=== PATIENT | female | born 1940 | race Caucasian/White ===

== ENCOUNTER 2017-08-26 16:13 | Emergency (ER) | payer OTHER, MEDICAID ==
[~2017-08-26] VITALS: Ht 149.9 cm; Wt 85.0 kg
[~2017-08-26 16:13] MED LIST: ADVAIR; ADVAIR 250-501 EACH INH; AFRIN120 MG PO; AFRIN15 ML NASAL; ALBUTEROL INHALER; APAP500 PO; ARTHRITIS MED; ASPIRIN325 PO; ATIVAN0.5 MG PO; CARDIZEM SR 60M60 MG; CARVEDILOL3.125 MG; CEFDINIR300 MG PO; COZAAR 25 MG TA25 M2 PO; COZAAR 50 MG TA50 M2 PO; COZAAR100 MG; CYCLOBENZAPRINE10 MG PO; CYMBALTA30 MG; DILTIAZEM HCL60 MG PO; FERROUS GLUCON324 M2 PO; FLOMAX0.4 MG PO; FLONASE; FLONASE16 GM NASAL; GEMFIBROZIL 60600 M1 PO; GEMFIBROZIL 60600 MG PO; GLUCOPHAGE1000 MG PO; HCTZ; HYDROCHLOROTHIA25 M1 PO; HYDROCHLOROTHIA25 M2 PO; HYDROCODON-ACE1 EAC7 PO; HYDROCODON-ACE1 EACH PO; LANTUS; LANTUS SUBQ; LEVAQUIN 250 M250 MG PO; LEVOTHYROXIN0.025 MG PO; LEVOTHYROXIN0.112 M1; LEVOTHYROXIN0.125 M1 PO; LEVOTHYROXINE; MIRALAX17 GM PO; NEURONTIN 300300 M1 PO; NEXIUM20 M1 PO; NEXIUM40 MG PO; NORCO 5-325 TA1 EACH PO; NORVASC10 MG PO; NOVOFINE; OMEPRAZOLE40 MG PO; OXYCODONE HCL 55 MG; OXYCONTIN CR 1010 M1; PERCOCET 5-3251 EACH PO; PHENERGAN 25 MG25 M1; PREDNISONE 10 M10 MG PO; RANITIDINE HCL300 M1 PO; REMERON15 M1; REQUIP 1 MG TABL1 M1 PO; SERTRALINE HCL100 MG PO; SERTRALINE HCL50 MG; SINGULAIR 10 MG10 M1 PO; SINGULAIR 10 MG10 MG PO; SPIRIVA INH; SPIRONOLACTONE25 MG PO; TIZANIDINE HCL 22 M1 PO; TOPAMAX 25 MG T25 MG PO; TRAMADOL 50 MG50 MG PO; TRAZODONE HCL50 MG PO; VENTOLIN HFA 1818 GM INH; ZOFRAN 4 MG ORAL4 MG PO; ZOFRAN ODT4 MG SUBLING; ZOFRAN4 MG PO; ZOFRAN8 MG PO
[2017-08-26 16:45] LABS: ABSOLUTE BASOPHILS 0.1 thou/uL (0.0-0.2); ABSOLUTE EOSINOPHILS 0.4 thou/uL (0.0-0.7); ABSOLUTE LYMPHOCYTES 1.5 thou/uL (0.8-5.3); ABSOLUTE NEUTROPHILS 11.3 thou/uL (1.6-8.1); BASOPHILS 0.4 %; EOSINOPHILS 2.6 %; HEMATOCRIT 38.7 % (37.0-47.0); HEMOGLOBIN 12.3 gm/dL (12.0-15.0); LYMPHOCYTES 10.5 %; MCH 27.8 pg (26.0-34.0); MCHC 31.9 g/dL (28.0-37.0); MCV 87.1 fL (80.0-100.0); MONOCYTES 6.9 %; MPV 7.2 fl. (7.2-11.1); NUCLEATED RBCS 0 /100WBC; PLATELET COUNT* 310 thou/uL (150-400); POLYS 79.6 %; RBC 4.44 mil/uL (4.20-5.00); WBC 14.2 thou/uL (4.0-11.0)
[2017-08-26 16:51] LABS: ANION GAP 8 mmol/L (7-16); BUN 20 mg/dL (7-18); CALCIUM 8.8 mg/dL (8.5-10.1); CHLORIDE 109 mmol/L (98-107); CO2 25 mmol/L (21-32); CREATININE 0.9 mg/dL (0.6-1.3); GLUCOSE 96 mg/dL (70-99); POTASSIUM 3.5 mmol/L (3.5-5.1); SODIUM 142 mmol/L (136-145)
[2017-08-26 16:58] LABS: ALBUMIN 3.6 g/dL (3.4-5.0); ALKALINE PHOSPHATASE 91 U/L (46-116); LIPASE 110 U/L (73-393); SGOT 16 U/L (15-37); SGPT 14 U/L (30-65); TOTAL BILIRUBIN 0.2 mg/dL (<0.1-1.0); TOTAL PROTEIN 6.9 g/dL (6.4-8.2); TROPONIN-I LEVEL <0.06 ng/mL (<0.06)
[2017-08-26] MEDS ORDERED: DIOVAN 80 MG TA80 M1 PO (16:59)
[2017-08-26] MEDS ORDERED: HYDROCODONE-AP1 EAC6 PO ×2 (16:59→18:25)
[2017-08-26] MEDS ORDERED: LIPITOR 20 MG T20 M1 PO (16:59)
[2017-08-26] MEDS ORDERED: NEURONTIN 300300 M1 PO (16:59)
[2017-08-26] MEDS ORDERED: ZANAFLEX2 MG PO (17:00)
[2017-08-26] MEDS ORDERED: JANUVIA50 MG PO (17:00)
[2017-08-26] MEDS ORDERED: METFORMIN HCL500 MG PO (17:00)
[2017-08-26] MEDS ORDERED: SPIRIVA INH (17:01)
[2017-08-26] MEDS ORDERED: ADVAIR HFA 230M12 GM INH (17:01)
[2017-08-26] MEDS ORDERED: LANTUS SOL100 UNIT/1 SUBQ (17:01)
[2017-08-26] MEDS ORDERED: PROAIR HFA8.5 GM NASAL (17:02)
[2017-08-26] MEDS ORDERED: ZYRTEC10 M4 PO (17:04)
[2017-08-26 17:08] LABS: URINE BILIRUBIN NEGATIVE (Negative); URINE BLOOD NEGATIVE (Negative); URINE CLARITY CLEAR; URINE COLOR YELLOW; URINE GLUCOSE-RANDOM NEGATIVE (Negative); URINE KETONES NEGATIVE (Negative); URINE LEUKOCYTES-REFLEX NEGATIVE (Negative); URINE NITRITE-REFLEX NEGATIVE (Negative); URINE PROTEIN NEGATIVE (Negative); URINE SPECIFIC GRAVITY >= 1.030 (1.005-1.030); URINE UROBILINOGEN 0.2 E.U./dl (0.2-1.0)
[2017-08-26 18:40] VITALS: BP 171/73
== END 2017-08-26 18:40 | disposition home or self-care (01) ==
LOC: M.ERS 16:13
PROVIDERS: Physician Assistant
DX: R10.31 Right lower quadrant pain (principal); R10.32 Left lower quadrant pain; R19.7 Diarrhea, unspecified; E11.9 Type 2 diabetes mellitus without complications; E78.00 Pure hypercholesterolemia, unspecified; Z90.710 Acquired absence of both cervix and uterus; Z90.89 Acquired absence of other organs; Z86.73 Personal history of transient ischemic attack (TIA), and cerebral infarction without residual deficits; J44.9 Chronic obstructive pulmonary disease, unspecified; G47.30 Sleep apnea, unspecified; I11.0 Hypertensive heart disease with heart failure; I50.9 Heart failure, unspecified; Z79.4 Long term (current) use of insulin

== ENCOUNTER 2018-07-16 10:45 | Emergency (ER) | payer OTHER, MEDICAID ==
[~2018-07-16] VITALS: Ht 149.9 cm; Wt 77.1 kg
[~2018-07-16 10:45] MED LIST changes: +ADVAIR HFA 230M12 GM INH; +DIOVAN 80 MG TA80 M1 PO; +HYDROCODONE-AP1 EAC6 PO; +JANUVIA50 MG PO; +LANTUS SOL100 UNIT/1 SUBQ; +LIPITOR 20 MG T20 M1 PO; +METFORMIN HCL500 MG PO; +PROAIR HFA8.5 GM NASAL; +ZANAFLEX2 MG PO; +ZYRTEC10 M4 PO
[2018-07-16] MEDS ORDERED: CYMBALTA30 MG PO (10:56)
[2018-07-16] MEDS ORDERED: FLONASE 0.05%50 MCG NASAL (10:57)
[2018-07-16] MEDS ORDERED: SINGULAIR 10 MG10 M1 PO (10:58)
[2018-07-16] MEDS ORDERED: FISH OIL 1,001000 M2 PO (10:59)
[2018-07-16] MEDS ORDERED: REQUIP3 MG PO (10:59)
[2018-07-16] MEDS ORDERED: TUMS PO (11:00)
[2018-07-16] MEDS ORDERED: XANAX 0.25 MG0.25 MG PO (11:01)
[2018-07-16] MEDS ORDERED: GERI-MOX ANTAC355 ML PO (11:02)
[2018-07-16] MEDS ORDERED: MAGOX 400400 MG PO (11:03)
[2018-07-16] MEDS ORDERED: MIRALAX17 GM PO (11:03)
[2018-07-16] MEDS ORDERED: FEVERALL JR 32325 M1 RECTAL (11:04)
[2018-07-16] MEDS ORDERED: MILK OF MA2400 MG/10 PO (11:06)
[2018-07-16] MEDS ORDERED: COZAAR 25 MG TA25 M1 (11:06)
[2018-07-16] MEDS ORDERED: TRAZODONE HCL100 MG PO (11:07)
[2018-07-16] MEDS ORDERED: MOBIC15 MG PO (11:07)
[2018-07-16] MEDS ORDERED: CLARITIN10 MG PO (11:08)
[2018-07-16] MEDS ORDERED: ROBITUSSIN100 MG/53 PO (11:08)
[2018-07-16] MEDS ORDERED: IBUPROFEN 200200 M1 (11:09)
[2018-07-16] MEDS ORDERED: LOPERAMIDE 2 MG2 M1 PO (11:10)
[2018-07-16] MEDS ORDERED: OXYBUTYNIN 5 MG5 M2 (11:10)
[2018-07-16 11:22] LABS: ABSOLUTE BASOPHILS 0.1 thou/uL (0.0-0.2); ABSOLUTE EOSINOPHILS 0.3 thou/uL (0.0-0.7); ABSOLUTE LYMPHOCYTES 2.3 thou/uL (0.8-5.3); ABSOLUTE MONOCYTES 1.4 thou/uL (0.0-1.2); ABSOLUTE NEUTROPHILS 7.1 thou/uL (1.6-8.1); BASOPHILS 0.8 %; EOSINOPHILS 2.9 %; HEMATOCRIT 35.4 % (37.0-47.0); HEMOGLOBIN 11.2 gm/dL (12.0-15.0); LYMPHOCYTES 20.2 %; MCH 24.2 pg (26.0-34.0); MCHC 31.6 g/dL (28.0-37.0); MCV 76.7 fL (80.0-100.0); MONOCYTES 12.1 %; MPV 7.1 fl. (7.2-11.1); NUCLEATED RBCS 0 /100WBC; PLATELET COUNT* 420 thou/uL (150-400); RBC 4.61 mil/uL (4.20-5.00); WBC 11.2 thou/uL (4.0-11.0)
[2018-07-16 11:26] LABS: ANION GAP 10 mmol/L (7-16); BUN 30 mg/dL (7-18); CALCIUM 9.8 mg/dL (8.5-10.1); CHLORIDE 101 mmol/L (98-107); CO2 27 mmol/L (21-32); CREATININE 1.3 mg/dL (0.6-1.3); GLUCOSE 167 mg/dL (70-99); POTASSIUM 4.2 mmol/L (3.5-5.1); SODIUM 138 mmol/L (136-145)
[2018-07-16 11:33] LABS: ALBUMIN 3.2 g/dL (3.4-5.0); ALKALINE PHOSPHATASE 122 U/L (46-116); LIPASE 148 U/L (73-393); SGOT 11 U/L (15-37); SGPT 12 U/L (30-65); TOTAL BILIRUBIN 0.2 mg/dL (<0.1-1.0); TOTAL PROTEIN 6.9 g/dL (6.4-8.2); TROPONIN-I LEVEL <0.06 ng/mL (<0.06)
[2018-07-16 14:06] LABS: URINE BILIRUBIN NEGATIVE (Negative); URINE BLOOD NEGATIVE (Negative); URINE CLARITY CLEAR; URINE COLOR YELLOW; URINE GLUCOSE-RANDOM NEGATIVE (Negative); URINE KETONES NEGATIVE (Negative); URINE LEUKOCYTES-REFLEX TRACE (Negative); URINE NITRITE-REFLEX NEGATIVE (Negative); URINE PROTEIN NEGATIVE (Negative); URINE UROBILINOGEN 0.2 E.U./dl (0.2-1.0)
[2018-07-16 14:14] LABS: BACTERIA-REFLEX None Seen /HPF (None Seen); CASTS None Seen /LPF (None Seen); CRYSTALS None Seen /LPF (None Seen); SQUAMOUS 0-3 Few /LPF (0-3); URINE RBC 0-2 Rare /HPF (0-2); URINE WBC-REFLEX 0-5 Rare /HPF (0-5)
[2018-07-16] MEDS ORDERED: CARAFATE1 GM/10 ML PO (14:22)
[2018-07-16] MEDS ORDERED: ONDANSETRON HCL4 M2 PO (14:25)
--- NOTE | 2018-07-16 15:02 | EKG ---
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: Isa ABARCA : 1940 Requested By: Taryn Abel Order Number: [id number] MD: Jasper Sanders Measurements Intervals [place] Rate: 49 P: 16 FL: 181 QRS: -30 QRSD: 86 T: 129 QT: 448 QTc: 405 Interpretive Statements Sinus bradycardia Abnormal R-wave progression, late transition Probable LVH with secondary repol abnrm Inferior infarct, old Compared to ECG 11/18/2016 16:12:08 Atrial premature complex(es) no longer present Myocardial infarct finding still present Electronically Signed On 07-16-2018 15:02:34 DIABETES SOLUTIONS SPECIALIST by Jasper Sanders [email or web address] <ELECTRONICALLY SIGNED> By: Jasper Sanders MD, FACC 07/16/18 1502 1104 1104 Jasper Sanders MD, FAC /EPI
[2018-07-16 17:23] VITALS: BP 114/63
== END 2018-07-16 17:25 | disposition home or self-care (01) ==
LOC: M.ERS 10:45
PROVIDERS: Nurse Practitioner Family
DX: K52.9 Noninfective gastroenteritis and colitis, unspecified (principal); K22.70 Barrett's esophagus without dysplasia; N83.201 Unspecified ovarian cyst, right side; E11.9 Type 2 diabetes mellitus without complications; E78.00 Pure hypercholesterolemia, unspecified; I11.0 Hypertensive heart disease with heart failure; I50.9 Heart failure, unspecified; J44.9 Chronic obstructive pulmonary disease, unspecified; G47.30 Sleep apnea, unspecified; Z90.710 Acquired absence of both cervix and uterus; Z86.73 Personal history of transient ischemic attack (TIA), and cerebral infarction without residual deficits

== ENCOUNTER → 2019-09-17 | Day surgery (SDC) | payer OTHER, MEDICAID ==
[~2019-09-17] MED LIST changes: +CARAFATE1 GM/10 ML PO; +CLARITIN10 MG PO; +COZAAR 25 MG TA25 M1; +CYMBALTA30 MG PO; +FEVERALL JR 32325 M1 RECTAL; +FISH OIL 1,001000 M2 PO; +FLONASE 0.05%50 MCG NASAL; +GERI-MOX ANTAC355 ML PO; +IBUPROFEN 200200 M1; +LOPERAMIDE 2 MG2 M1 PO; +MAGOX 400400 MG PO; +MILK OF MA2400 MG/10 PO; +MOBIC15 MG PO; +ONDANSETRON HCL4 M2 PO; +OXYBUTYNIN 5 MG5 M2; +REQUIP3 MG PO; +ROBITUSSIN100 MG/53 PO; +TRAZODONE HCL100 MG PO; +TUMS PO; +XANAX 0.25 MG0.25 MG PO
--- NOTE | ~2019-09-17 | PROC ---
[facility] [address] [place] [address] PROCEDURE REPORT Name: MIKKI LIZAMA Room: [facility]#: [id number] Admission: 09/17/19 Attend Phys: Corey Henry MD Discharge: Date of : 42 Report #: [id number] THIS REPORT FOR: //name// cc: Rene Romero MD, Daljeet MD ~ THIS REPORT FOR: //name// For GI report, please see the Provation report in Perceptive 7 content. By: 0636Medical Records Staff HALI /SEAN
--- NOTE | 2019-09-17 10:23 | EKG ---
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: : 1940 Requested By: Corey Henry Order Number: [id number] Reading MD: Mike Valdovinso Measurements Intervals [place] Rate: 61 P: -55 ND: 195 QRS: -28 QRSD: 90 T: 128 QT: 550 QTc: 554 Interpretive Statements Sinus or ectopic atrial rhythm Abnormal R-wave progression, late transition Inferior infarct, old Lateral leads are also involved Prolonged QT interval Compared to ECG 07/16/2018 11:04:40 Prolonged QT interval now present Sinus bradycardia no longer present Myocardial infarct finding still present Electronically Signed On 09-17-2019 10:22:23 ADMISSIONS OFFICER by Mike Valdovinos [email or web address] <ELECTRONICALLY SIGNED> By: Mike Valdovinos MD, [facility] 09/17/19 1022 0839 0839 Mike Valdovinos MD, [facility] /EPI
--- NOTE | 2019-09-20 16:07 | PATH ---
[address] [address] PATHOLOGY RPT PROCEDURE Name: MIKKI PAVON Amos Room: [facility]#: [id number] Admission: 09/17/19 Date of : 42 Discharge: Report #: [id number] Path Case #: [id number] [facility] Accession Number: [id number] . 01 Material submitted: . PART A: stomach - GASTRIC-ESOPHAGEAL BIOPSIES PART B: colon - RANDOM BIOPSIES OF COLON . 01 Clinical history: . History of polyps, Chan's esophagus, GERD. . 02 Diagnosis: A. Gastric/esophageal biopsies: - Benign esophageal and gastric/columnar types mucosa with ulceration compatible with ulcerative reflux, negative for goblet cells/diagnostic Chan's metaplasia, Helicobacter pylori organisms, diagnostic viral inclusions, granulomas and dysplasia. . B. Random biopsies of colon: - Benign colonic mucosa with hyperplastic lymphoid follicles (Peyer's patches) and with focal suggestion of ischemia, negative for granulomas, viral inclusions and dysplasia. (See comment) . (DANY:stephy; 09/20/2019) [facility] 09/20/2019 1353 Local . 02 Comment: The random colon biopsies (B) have easily identified eosinophils which are within the spectrum of that seen in right-sided biopsies but could be increased at more distal biopsies, and are otherwise, generally save for one fragment which shows a suggestion of superficial crypt atrophy where the lamina propria around it is condensed and is also associated with a prominence of eosinophils. This could be attributed to the use of non-steroidal anti-inflammatory agents. There is no significant crypt distortion or basal lymphoplasmacytosis to raise a concern for inflammatory bowel disease. . Special stain (A): H. pylori immuno. . (DANY:stephy; 09/20/2019) . 02 Electronically signed: . Anjel Bolden MD, Pathologist NPI- [id number] . 01 Gross description: . A. Received in formalin labeled "Mikki Pavon, gastric/[place] [address] PATHOLOGY RPT PROCEDURE Name: MIKKI PAVON Room: [facility]#: [id number] Admission: 09/17/19 Date of : 42 Discharge: Report #: [id number] Path Case #: [id number] to rule out dysplasia and Chan's" is a 0.5 x 0.4 x 0.1 cm aggregate of thomas-brown soft tissue fragments. The specimen is submitted entirely in A1. . . B. Received in formalin labeled "Mikki Pavon, random biopsies of colon to rule out microscopic colitis" is a 0.7 x 0.5 x 0.1 cm aggregate of thomas-brown soft tissue fragments. The specimen is submitted entirely in B1. ([facility]; 09/19/2019) [facility] 09/19/2019 1113 Local . 02 Pathologist provided ICD-10: K22.10, K21.0, Z86.010, K22.70 . 02 CPT . 454789, 572287, U83002 Specimen Comment: A courtesy copy of this report has been sent to [phone], [phone] Specimen Comment: 2007 Specimen Comment: Report sent to / DR KING Performed at: [address], [place] [id number] MD Chris Srinivasan MD Phone: [phone] Performed at: 02 [facility] [address], [place], [place] [id number] MD Anjel Bolden MD Phone: [phone]
== END | disposition home or self-care (01) ==
LOC: M.SUR 06:46
DX: Z12.11 Encounter for screening for malignant neoplasm of colon (principal); Z86.010 Personal history of colon polyps; R19.7 Diarrhea, unspecified; K63.89 Other specified diseases of intestine; K57.30 Diverticulosis of large intestine without perforation or abscess without bleeding; K64.8 Other hemorrhoids; K22.2 Esophageal obstruction; K21.0 Gastro-esophageal reflux disease with esophagitis; K22.10 Ulcer of esophagus without bleeding; K64.4 Residual hemorrhoidal skin tags; J44.9 Chronic obstructive pulmonary disease, unspecified; F32.9 Major depressive disorder, single episode, unspecified; Z98.890 Other specified postprocedural states; Z79.899 Other long term (current) drug therapy; Z79.82 Long term (current) use of aspirin